=== PATIENT | female | born 1945 | race Two or more races ===

== ENCOUNTER 2021-04-03 22:03 | Inpatient (IN) | payer OTHER, MEDICAID ==
[~2021-04-03] VITALS: Ht 162.6 cm; Wt 161.0 kg
[2021-04-03 23:56] LABS: Basophils # (auto) 0.1 10 ^3/uL (0-0.2); Hemoglobin 8.4 g/dL (12.2-16.2); Lymphocytes # (auto) 1.7 10 ^3/uL (0.4-5.4)
[2021-04-03 23:59] LABS: Basophils % (auto) 0.3 % (0.0-2.0); Eosinophils # (auto) 0.3 10 ^3/uL (0-0.8); Eosinophils % (auto) 1.3 % (0.0-7.0); Hematocrit 27.1 % (36.0-46.0); Lymphocytes % (auto) 7.5 % (10.0-50.0); Mean Corpuscular Hemoglobin 26.2 pg (28.0-32.0); Mean Corpuscular Volume 84.4 fL (80.0-100.0); Monocytes # (auto) 0.6 10 ^3/uL (0-1.3); Monocytes % (auto) 2.4 % (0.0-12.0); Neutrophils # (auto) 20.4 10 ^3/uL (1.6-8.6); Neutrophils % (auto) 88.5 % (37.0-80.0); Nucleated Red Blood Cells % 0.5 %; Red Blood Cells 3.21 10^6/uL (4.0-5.20)
[2021-04-04 00:03] LABS: Red Cell Distribution Width 25.1 % (11.8-14.3)
[2021-04-04 00:20] LABS: Albumin 1.1 g/dL (3.4-5.0); Calcium 7.3 mg/dL (8.5-10.1); Potassium 5.1 mmol/L (3.5-5.1)
[2021-04-04 00:25] LABS: BUN/Creatinine Ratio 40.4; Bilirubin, Total 1.7 mg/dL (0.2-1.0); Total Protein 5.8 g/dL (6.4-8.2)
[2021-04-04 02:44] LABS: INR 1.6 (0.9-1.15)
[2021-04-04] MEDS ORDERED: VANCOMYCIN 1GM/250ML 250 ML IV ONE (03:45)
[2021-04-04] MEDS ORDERED: PIPERACILLIN-TAZOB 3.375GM 100 ML IV ONE (03:45)
[2021-04-04] MEDS ORDERED: IOHEXOL 350 MG/ML 100ML IJ ONE (04:00)
[2021-04-04] MEDS ORDERED: DEXTROSE (50%) 50ML SYRG IV PRN (07:15)
[2021-04-04] MEDS ORDERED: SODIUM CHLORIDE 0.9% 1,000 ML IV SCH (07:15)
[2021-04-04] MEDS ORDERED: VANCOMYCIN PER PHARMACY 0 MG IV SCH (07:15)
[2021-04-04] MEDS ORDERED: ONDANSETRON HCL 4 MG/2 ML VIAL IV PRN (07:15)
[2021-04-04] MEDS ORDERED: MORPHINE SULFATE INJECTION 2 MG/ML SYRG IV PRN (07:15)
[2021-04-04] MEDS ORDERED: NITROGLYCERIN 0.4 MG SL TAB SL PRN (07:15)
[2021-04-04 09:49] LABS: Urine Bacteria NONE SEEN /hpf (None Seen); Urine Blood Negative /uL (Negative); Urine Specific Gravity 1.027 (1.001-1.035); Urine WBC 37 /hpf (0 - 5); Urine WBC Clumps PRESENT /hpf (None Seen)
[2021-04-04] MEDS: PANTOPRAZOLE 40 MG/10 ML VIAL INJ IV SCH (10:06)
[2021-04-04] MEDS: InsuLIN REG 1unit/0.01ml Soln (100units/ml) SC SCH ×2 (12:00→18:36)
[2021-04-04] MEDS: ACCU-CHEK COMFORT CURVE STRIP VI SCH ×2 (12:20→18:37)
[2021-04-04] MEDS: PIPERACILLIN-TAZOB 3.375GM 100 ML IV SCH ×2 (12:20→18:36)
[2021-04-04] MEDS ORDERED: OMNIPAQUE ORAL SOLN 500ml 12mg/ml PO ONE (13:56)
[2021-04-04 14:16] LABS: Hemoglobin 8.5 g/dL (12.2-16.2)
[2021-04-04 14:18] LABS: Hematocrit 26.7 % (36.0-46.0)
[2021-04-04 14:34] LABS: Lactic Acid w/Reflex 3.6 mmol/L (0.4-2.0)
[2021-04-04] MEDS: SODIUM CHLORIDE 0.9% 1,000 ML IV SCH (16:00)
[2021-04-04 22:22] LABS: BUN/Creatinine Ratio 45.9; Calcium 7.4 mg/dL (8.5-10.1)
[2021-04-04 22:24] LABS: Bilirubin, Total 1.8 mg/dL (0.2-1.0); Total Protein 5.3 g/dL (6.4-8.2)
[2021-04-04 22:45] VITALS: BP 105/55
[2021-04-04 23:00] VITALS: BP 105/55
[2021-04-04] MEDS ORDERED: DOCU100T15 PO (23:33)
[2021-04-04] MEDS ORDERED: ALBU2TAB4 IN (23:33)
[2021-04-04] MEDS ORDERED: TRAZ50TA2 PO (23:33)
[2021-04-04] MEDS ORDERED: FURO20TA3 PO (23:33)
[2021-04-04] MEDS ORDERED: METF-370 PO (23:33)
[2021-04-04] MEDS ORDERED: GABA300C10 PO (23:33)
[2021-04-04] MEDS ORDERED: APIX5TAB PO (23:33)
[2021-04-05] MEDS: PANTOPRAZOLE 40 MG/10 ML VIAL INJ IV SCH ×3 (00:14→21:00)
[2021-04-05] MEDS: PIPERACILLIN-TAZOB 3.375GM 100 ML IV SCH ×4 (00:14→18:09)
[2021-04-05] MEDS: SODIUM CHLORIDE 0.9% 1,000 ML IV SCH ×2 (00:16→07:15)
[2021-04-05] MEDS: VANCOMYCIN 1GM/250ML 250 ML IV SCH ×2 (00:44→17:10)
[2021-04-05 05:30] VITALS: BP 104/55
[2021-04-05] MEDS: ACCU-CHEK COMFORT CURVE STRIP VI SCH ×4 (05:55→18:28)
[2021-04-05] MEDS: InsuLIN REG 1unit/0.01ml Soln (100units/ml) SC SCH ×4 (05:56→18:00)
[2021-04-05 10:05] VITALS: BP 96/58
[2021-04-05] MEDS ORDERED: ALBUAER3 IN (10:57)
[2021-04-05] MEDS ORDERED: MULT1TAB28 PO (10:57)
[2021-04-05] MEDS ORDERED: FURO20TA3 PO (10:57)
[2021-04-05] MEDS ORDERED: METF-929 PO (10:57)
[2021-04-05] MEDS ORDERED: HYDR5CRE3 PR (11:02)
[2021-04-05 13:00] VITALS: BP 95/60
[2021-04-05] MEDS ORDERED: ALBUTEROL SULF 2.5 MG/0.5ML(0.5%) NEB SOLN NEB PRN (13:15)
[2021-04-05 15:27] LABS: Hematocrit 28.1 % (36.0-46.0); Hemoglobin 8.7 g/dL (12.2-16.2); Mean Corpuscular Hgb Conc. 30.8 g/dL (32.0-36.0); Mean Corpuscular Volume 81.3 fL (80.0-100.0); Red Blood Cells 3.46 10^6/uL (4.0-5.20); White Blood Cell 20.2 10^3/uL (4.4-10.8)
[2021-04-05 15:33] LABS: Red Cell Distribution Width 24.3 % (11.8-14.3)
[2021-04-05 15:35] LABS: Basophils % (manual) 0 (0.0-2.0); Blast Cells 0; Metamyelocytes % 0; Myelocytes % 0; Promyelocytes % 0; Reactive Lymphocytes 0
[2021-04-05] MEDS: D5W/SOD CHLO 0.9% 1,000 ML IV SCH ×2 (16:06→23:15)
[2021-04-05 16:41] VITALS: BP 95/56
[2021-04-05 17:01] LABS: Band Neutrophils % (manual) 7; Eosinophils % (manual) 1 (0-7); Lymphocytes % (manual) 3 (10.0-50.0); Monocytes % (manual) 3 (0-12)
[2021-04-05] MEDS: MORPHINE SULFATE 4 MG/ML SYR/VIAL IV PRN (20:57)
[2021-04-05 22:00] VITALS: BP 96/52
[2021-04-05 23:33] LABS: Alanine Aminotransferase 50 U/L (13-56); Alkaline Phosphatase 401 U/L (45-117); Anion Gap 5 (5-15); Aspartate Aminotransferase 94 U/L (15-37); BUN/Creatinine Ratio 41.1; Bilirubin, Total 1.8 mg/dL (0.2-1.0); Blood Urea Nitrogen 46 mg/dL (7-18); Calcium 7.1 mg/dL (8.5-10.1); Carbon Dioxide 27 mmol/L (21-32); Chloride 100 mmol/L (98-107); GFR African American 61 mL/min; GFR Non-African American 51 mL/min; Glucose 91 mg/dL (74-106); Sodium 132 mmol/L (136-145)
[2021-04-05 23:34] LABS: Albumin 1.1 g/dL (3.4-5.0); Total Protein 5.5 g/dL (6.4-8.2)
[2021-04-06] MEDS: ACCU-CHEK COMFORT CURVE STRIP VI SCH ×4 (00:05→18:00)
[2021-04-06] MEDS: PIPERACILLIN-TAZOB 3.375GM 100 ML IV SCH ×2 (01:32→06:17)
[2021-04-06 05:30] VITALS: BP 93/46
[2021-04-06] MEDS: InsuLIN REG 1unit/0.01ml Soln (100units/ml) SC SCH ×4 (06:00→18:00)
[2021-04-06 06:57] LABS: Eosinophils # (auto) 0.2 10 ^3/uL (0-0.8); Nucleated Red Blood Cells % 0.3 %
[2021-04-06 07:00] LABS: Basophils # (auto) 0 10 ^3/uL (0-0.2); Basophils % (auto) 0.2 % (0.0-2.0); Eosinophils % (auto) 1.2 % (0.0-7.0); Hematocrit 28.5 % (36.0-46.0); Hemoglobin 8.7 g/dL (12.2-16.2); Lymphocytes # (auto) 1.1 10 ^3/uL (0.4-5.4); Lymphocytes % (auto) 5.3 % (10.0-50.0); Mean Corpuscular Hemoglobin 25.7 pg (28.0-32.0); Mean Corpuscular Hgb Conc. 30.5 g/dL (32.0-36.0); Mean Corpuscular Volume 84.2 fL (80.0-100.0); Monocytes # (auto) 0.6 10 ^3/uL (0-1.3); Monocytes % (auto) 2.7 % (0.0-12.0); Neutrophils # (auto) 18.9 10 ^3/uL (1.6-8.6); Neutrophils % (auto) 90.6 % (37.0-80.0); Red Blood Cells 3.38 10^6/uL (4.0-5.20); Red Cell Distribution Width 24.5 % (11.8-14.3); White Blood Cell 20.8 10^3/uL (4.4-10.8)
[2021-04-06 07:06] LABS: INR 1.52 (0.9-1.15)
[2021-04-06 07:18] LABS: Calcium 7.3 mg/dL (8.5-10.1); Lactic Acid w/Reflex 2.7 mmol/L (0.4-2.0); Magnesium 2.7 mg/dL (1.6-2.6); Potassium 4.7 mmol/L (3.5-5.1)
[2021-04-06 07:20] LABS: BUN/Creatinine Ratio 36.2
[2021-04-06 07:28] LABS: Total Protein 5.5 g/dL (6.4-8.2)
[2021-04-06] MEDS: MORPHINE SULFATE 4 MG/ML SYR/VIAL IV PRN ×2 (07:42→16:57)
[2021-04-06 08:00] VITALS: BP 111/65
[2021-04-06 08:43] VITALS: BP 111/65
[2021-04-06] MEDS: PANTOPRAZOLE 40 MG/10 ML VIAL INJ IV SCH ×2 (10:19→21:24)
[2021-04-06] MEDS: VANCOMYCIN 1GM/250ML 250 ML IV SCH (10:20)
[2021-04-06 11:52] VITALS: BP 124/68
[2021-04-06] MEDS: MEROPENEM 1GM IVPB 100 ML IV SCH ×2 (13:50→22:24)
[2021-04-06 17:12] VITALS: BP 99/62
[2021-04-06] MEDS: D5W/SOD CHLO 0.9% 1,000 ML IV SCH (19:15)
[2021-04-06 22:09] VITALS: BP 99/62
[2021-04-07] MEDS: ACCU-CHEK COMFORT CURVE STRIP VI SCH ×4 (00:12→17:47)
[2021-04-07] MEDS: MORPHINE SULFATE 4 MG/ML SYR/VIAL IV PRN ×4 (04:06→18:44)
[2021-04-07] MEDS: MEROPENEM 1GM IVPB 100 ML IV SCH ×2 (04:07→16:32)
[2021-04-07 05:04] VITALS: BP 131/81
[2021-04-07] MEDS: D5W/SOD CHLO 0.9% 1,000 ML IV SCH ×2 (05:15→15:15)
[2021-04-07] MEDS: InsuLIN REG 1unit/0.01ml Soln (100units/ml) SC SCH ×4 (06:00→17:53)
[2021-04-07] MEDS: VANCOMYCIN 1GM/250ML 250 ML IV SCH (06:00)
[2021-04-07 09:00] VITALS: BP 130/73
[2021-04-07] MEDS: PANTOPRAZOLE 40 MG/10 ML VIAL INJ IV SCH ×2 (09:49→20:45)
[2021-04-07 12:52] VITALS: BP 124/68
[2021-04-07] MEDS: LINEZOLID 600MG/300ML 300 ML IV SCH ×2 (14:08→20:48)
[2021-04-07 16:43] VITALS: BP 111/56
[2021-04-07] MEDS ORDERED: MEROPENEM 1GM IVPB 100 ML IV SCH (17:15)
[2021-04-07 22:18] VITALS: BP 91/48
[2021-04-08] MEDS: D5W/SOD CHLO 0.9% 1,000 ML IV SCH ×4 (01:15→23:02)
[2021-04-08 05:00] VITALS: BP 113/75
[2021-04-08 05:47] LABS: Hemoglobin 7.9 g/dL (12.2-16.2)
[2021-04-08 05:49] LABS: Hematocrit 24.7 % (36.0-46.0); Mean Corpuscular Hemoglobin 27.8 pg (28.0-32.0); Mean Corpuscular Hgb Conc. 31.8 g/dL (32.0-36.0); Mean Corpuscular Volume 87.5 fL (80.0-100.0); Red Blood Cells 2.82 10^6/uL (4.0-5.20); White Blood Cell 19.8 10^3/uL (4.4-10.8)
[2021-04-08 05:58] LABS: Potassium 4.5 mmol/L (3.5-5.1)
[2021-04-08 05:59] LABS: Basophils % (manual) 0 (0.0-2.0); Blast Cells 0; Metamyelocytes % 0; Myelocytes % 0; Promyelocytes % 0; Reactive Lymphocytes 0; Red Cell Distribution Width 24.2 % (11.8-14.3)
[2021-04-08] MEDS ORDERED: VANCOMYCIN 1GM/250ML 250 ML IV SCH (06:00)
[2021-04-08 06:02] LABS: BUN/Creatinine Ratio 32.4; Calcium 7.1 mg/dL (8.5-10.1)
[2021-04-08] MEDS: ACCU-CHEK COMFORT CURVE STRIP VI SCH ×4 (06:10→18:00)
[2021-04-08] MEDS: MEROPENEM 1GM IVPB 100 ML IV SCH ×2 (06:12→18:48)
[2021-04-08] MEDS: InsuLIN REG 1unit/0.01ml Soln (100units/ml) SC SCH ×4 (06:38→18:00)
[2021-04-08 07:53] LABS: Band Neutrophils % (manual) 5; Eosinophils % (manual) 1 (0-7); Lymphocytes % (manual) 3 (10.0-50.0); Monocytes % (manual) 6 (0-12)
[2021-04-08 09:00] VITALS: BP 96/56
[2021-04-08] MEDS: PANTOPRAZOLE 40 MG/10 ML VIAL INJ IV SCH ×2 (10:00→22:09)
[2021-04-08] MEDS: LINEZOLID 600MG/300ML 300 ML IV SCH ×2 (11:07→22:14)
[2021-04-08] MEDS: MORPHINE SULFATE 4 MG/ML SYR/VIAL IV PRN ×2 (11:48→17:13)
[2021-04-08 12:39] LABS: Magnesium 2.6 mg/dL (1.6-2.6); Phosphorus 5.6 mg/dL (2.5-4.90)
[2021-04-08 12:43] LABS: Pre Albumin 3.4 mg/dL (20.0-40.0)
[2021-04-08 13:00] VITALS: BP 96/54
[2021-04-08] MEDS ORDERED: PPN PER PHARMACY 0 ML IV SCH (13:00)
[2021-04-08 16:37] VITALS: BP 114/64
[2021-04-08] MEDS ORDERED: HYDROmorphone HCL 2 MG/ML VL IV PRN (19:30)
[2021-04-08] MEDS ORDERED: AMINO ACID INFUSION IN D10W 1,000 ML IV NR (20:00)
[2021-04-08 22:00] VITALS: BP 111/65
[2021-04-09] VITALS (10 sets, daily range): BP systolic 87–120; BP diastolic 52–72
[2021-04-09] MEDS ORDERED: DEXTROSE (50%) 50ML SYRG IV SCH
[2021-04-09] MEDS: ACCU-CHEK COMFORT CURVE STRIP VI SCH ×4 (00:25→18:00)
[2021-04-09] MEDS: MEROPENEM 1GM IVPB 100 ML IV SCH ×2 (05:39→23:22)
[2021-04-09] MEDS: InsuLIN REG 1unit/0.01ml Soln (100units/ml) SC SCH ×4 (05:42→18:00)
[2021-04-09 06:14] LABS: Hematocrit 19.9 % (36.0-46.0); Mean Corpuscular Hemoglobin 32.2 pg (28.0-32.0); Mean Corpuscular Hgb Conc. 28.7 g/dL (32.0-36.0); Mean Corpuscular Volume 111.9 fL (80.0-100.0); Red Blood Cells 1.78 10^6/uL (4.0-5.20); White Blood Cell 14.7 10^3/uL (4.4-10.8)
[2021-04-09 06:32] LABS: Hemoglobin 5.7 g/dL (12.2-16.2); Red Cell Distribution Width 25.8 % (11.8-14.3)
[2021-04-09 06:34] LABS: Basophils % (manual) 0 (0.0-2.0); Blast Cells 0; Eosinophils % (manual) 0 (0-7); Metamyelocytes % 0; Monocytes % (manual) 0 (0-12); Myelocytes % 0; Promyelocytes % 0; Reactive Lymphocytes 0
[2021-04-09 09:10] LABS: Band Neutrophils % (manual) 1; Lymphocytes % (manual) 3 (10.0-50.0)
[2021-04-09] MEDS: PANTOPRAZOLE 40 MG/10 ML VIAL INJ IV SCH ×2 (09:39→22:40)
[2021-04-09] MEDS: LINEZOLID 600MG/300ML 300 ML IV SCH ×2 (09:40→23:01)
[2021-04-09 09:52] LABS: INR 1.38 (0.9-1.15); Partial Thromboplastin Time 35.3 sec (23.6-33.0)
[2021-04-09 09:54] LABS: Calcium 7.1 mg/dL (8.5-10.1); Magnesium 3.4 mg/dL (1.6-2.6); Potassium 4.4 mmol/L (3.5-5.1)
[2021-04-09 10:00] LABS: Bilirubin, Total 1.3 mg/dL (0.2-1.0); Phosphorus 5.3 mg/dL (2.5-4.90); Total Protein 4.8 g/dL (6.4-8.2)
[2021-04-09 10:04] LABS: Hemoglobin 7.3 g/dL (12.2-16.2); Lymphocytes # (auto) 1.1 10 ^3/uL (0.4-5.4); Nucleated Red Blood Cells % 0.2 %
[2021-04-09 10:07] LABS: Basophils # (auto) 0 10 ^3/uL (0-0.2); Basophils % (auto) 0.2 % (0.0-2.0); Eosinophils # (auto) 0.2 10 ^3/uL (0-0.8); Eosinophils % (auto) 0.9 % (0.0-7.0); Hematocrit 22.5 % (36.0-46.0); Mean Corpuscular Hemoglobin 29.7 pg (28.0-32.0); Mean Corpuscular Hgb Conc. 32.5 g/dL (32.0-36.0); Mean Corpuscular Volume 91.5 fL (80.0-100.0); Monocytes # (auto) 0.3 10 ^3/uL (0-1.3); Monocytes % (auto) 1.6 % (0.0-12.0); Neutrophils # (auto) 16.1 10 ^3/uL (1.6-8.6); Neutrophils % (auto) 91.3 % (37.0-80.0); Red Blood Cells 2.46 10^6/uL (4.0-5.20); Red Cell Distribution Width 24.7 % (11.8-14.3); White Blood Cell 17.6 10^3/uL (4.4-10.8)
[2021-04-09 11:26] LABS: BUN/Creatinine Ratio 36.1
[2021-04-09] MEDS: ALBUMIN 25% 100 ML IV SCH ×2 (14:30→22:40)
[2021-04-09] MEDS ORDERED: FUROSEMIDE 20 MG/2 ML VIAL IV ONE (14:45)
[2021-04-09] MEDS: D5W/SOD CHLO 0.9% 1,000 ML IV SCH (17:15)
[2021-04-09] MEDS ORDERED: TRACE MINERALS IV NR ×6 (20:00)
[2021-04-09] MEDS ORDERED: SODIUM CHLORIDE IV NR ×6 (20:00)
[2021-04-09] MEDS ORDERED: [UNRECOGNIZED DRUG - OTHER] IV NR ×6 (20:00)
[2021-04-09] MEDS ORDERED: SODIUM ACETATE IV NR ×6 (20:00)
[2021-04-10] MEDS: ACCU-CHEK COMFORT CURVE STRIP VI SCH ×4 (00:20→17:38)
[2021-04-10] MEDS: D5W/SOD CHLO 0.9% 1,000 ML IV SCH ×2 (03:10→15:51)
[2021-04-10 04:00] VITALS: BP 98/58
[2021-04-10] MEDS: InsuLIN REG 1unit/0.01ml Soln (100units/ml) SC SCH ×4 (05:30→17:46)
[2021-04-10] MEDS: ALBUMIN 25% 100 ML IV SCH (06:14)
[2021-04-10 08:00] VITALS: BP 124/75
[2021-04-10 09:00] VITALS: BP 124/75
[2021-04-10 09:24] LABS: Monocytes # (auto) 0.4 10 ^3/uL (0-1.3); White Blood Cell 16.7 10^3/uL (4.4-10.8)
[2021-04-10 09:27] LABS: Basophils # (auto) 0 10 ^3/uL (0-0.2); Basophils % (auto) 0.3 % (0.0-2.0); Eosinophils # (auto) 0.5 10 ^3/uL (0-0.8); Eosinophils % (auto) 2.7 % (0.0-7.0); Hematocrit 24.5 % (36.0-46.0); Lymphocytes # (auto) 0.9 10 ^3/uL (0.4-5.4); Lymphocytes % (auto) 5.5 % (10.0-50.0); Mean Corpuscular Hgb Conc. 32.7 g/dL (32.0-36.0); Mean Corpuscular Volume 91.8 fL (80.0-100.0); Monocytes % (auto) 2.4 % (0.0-12.0); Neutrophils # (auto) 14.9 10 ^3/uL (1.6-8.6); Neutrophils % (auto) 89.1 % (37.0-80.0); Nucleated Red Blood Cells % 0.3 %; Red Blood Cells 2.67 10^6/uL (4.0-5.20); Red Cell Distribution Width 22.7 % (11.8-14.3)
[2021-04-10 09:35] LABS: INR 1.37 (0.9-1.15)
[2021-04-10 09:42] LABS: Lactic Acid w/Reflex 2.8 mmol/L (0.4-2.0)
[2021-04-10] MEDS ORDERED: GELATIN 1 SPONGE SIZE 50 TOP ONE (10:37)
[2021-04-10] MEDS ORDERED: LIDOCAINE 2%HCL (LOCAL ANESTH.) INJ 20ML MDV ONE (10:37)
[2021-04-10 10:41] LABS: Potassium 4.3 mmol/L (3.5-5.1)
[2021-04-10 10:46] LABS: Albumin 2.1 g/dL (3.4-5.0); BUN/Creatinine Ratio 36.3; Calcium 7.7 mg/dL (8.5-10.1); Magnesium 2.6 mg/dL (1.6-2.6)
[2021-04-10 10:48] LABS: Bilirubin, Total 1.5 mg/dL (0.2-1.0); Phosphorus 4.7 mg/dL (2.5-4.90); Total Protein 5.3 g/dL (6.4-8.2)
[2021-04-10] MEDS: MEROPENEM 1GM IVPB 100 ML IV SCH ×2 (10:56→21:31)
[2021-04-10] MEDS: PANTOPRAZOLE 40 MG/10 ML VIAL INJ IV SCH ×2 (10:57→22:14)
[2021-04-10] MEDS: LINEZOLID 600MG/300ML 300 ML IV SCH ×2 (10:57→22:14)
[2021-04-10] MEDS ORDERED: MIDAZOLAM HCL 2MG/2ML 2ml VIAL (1mg/ml) ONE (11:59)
[2021-04-10] MEDS ORDERED: fentaNYL CITRATE 100 MCG/2 ML VL ONE (12:00)
[2021-04-10 13:00] VITALS: BP 115/65
[2021-04-10] MEDS ORDERED: LIDOCAINE 1% (LOCAL ANESTH.) PF 5ml SDV ID ONE (17:30)
[2021-04-10] MEDS: MORPHINE SULFATE 4 MG/ML SYR/VIAL IV PRN (17:39)
[2021-04-10] MEDS ORDERED: PPN PER PHARMACY IV NR ×8 (20:00)
[2021-04-10 22:00] VITALS: BP 125/71
[2021-04-11 05:00] VITALS: BP 95/52
[2021-04-11] MEDS: InsuLIN REG 1unit/0.01ml Soln (100units/ml) SC SCH ×4 (06:00→18:01)
[2021-04-11] MEDS: ACCU-CHEK COMFORT CURVE STRIP VI SCH ×4 (06:28→18:01)
[2021-04-11 08:26] LABS: Basophils # (auto) 0.1 10 ^3/uL (0-0.2); Basophils % (auto) 0.6 % (0.0-2.0); Eosinophils # (auto) 0.1 10 ^3/uL (0-0.8); Eosinophils % (auto) 0.8 % (0.0-7.0); Hemoglobin 8.3 g/dL (12.2-16.2); Monocytes # (auto) 0.3 10 ^3/uL (0-1.3); Neutrophils # (auto) 14.6 10 ^3/uL (1.6-8.6); White Blood Cell 16.1 10^3/uL (4.4-10.8)
[2021-04-11 08:29] LABS: Hematocrit 26.3 % (36.0-46.0); Mean Corpuscular Hemoglobin 28.4 pg (28.0-32.0); Mean Corpuscular Hgb Conc. 31.7 g/dL (32.0-36.0); Mean Corpuscular Volume 89.6 fL (80.0-100.0); Monocytes % (auto) 1.9 % (0.0-12.0); Neutrophils % (auto) 90.7 % (37.0-80.0); Nucleated Red Blood Cells % 0.2 %; Red Blood Cells 2.93 10^6/uL (4.0-5.20); Red Cell Distribution Width 22.6 % (11.8-14.3)
[2021-04-11 08:54] LABS: Albumin 1.7 g/dL (3.4-5.0); BUN/Creatinine Ratio 44.4; Bilirubin, Total 1.3 mg/dL (0.2-1.0); Magnesium 2.7 mg/dL (1.6-2.6); Phosphorus 4.5 mg/dL (2.5-4.90); Total Protein 5.3 g/dL (6.4-8.2)
[2021-04-11 09:00] VITALS: BP 108/63
[2021-04-11] MEDS: PANTOPRAZOLE 40 MG/10 ML VIAL INJ IV SCH (09:52)
[2021-04-11] MEDS: LINEZOLID 600MG/300ML 300 ML IV SCH (09:52)
[2021-04-11] MEDS: MEROPENEM 1GM IVPB 100 ML IV SCH ×2 (09:52→22:40)
[2021-04-11] MEDS: D5W/SOD CHLO 0.9% 1,000 ML IV SCH ×2 (09:53→09:59)
[2021-04-11] MEDS ORDERED: TPN PER PHARMACY 0 ML IV SCH (10:00)
[2021-04-11 13:00] VITALS: BP_SYST 89; BP_SYST 96; BP_DIAS 54; BP_DIAS 58
[2021-04-11] MEDS ORDERED: KETOROLAC TROMETH 30 MG/ML 1ML VIAL IV PRN (14:45)
[2021-04-11] MEDS ORDERED: MORPHINE SULFATE INJECTION 2 MG/ML SYRG IV PRN (14:45)
[2021-04-11] MEDS ORDERED: FUROSEMIDE 20 MG/2 ML VIAL IV ONE (16:00)
[2021-04-11] MEDS ORDERED: ALBUMIN 25% 100 ML IV SCH (16:00)
[2021-04-11] MEDS: ALBUMIN 25% 100 ML IV SCH (16:36)
[2021-04-11 16:54] VITALS: BP 100/57
[2021-04-11 20:00] VITALS: BP 91/52
[2021-04-11] MEDS ORDERED: TPN PER PHARMACY IV NR ×6 (20:00)
[2021-04-11 22:00] VITALS: BP 91/52
[2021-04-11] MEDS ORDERED: KETOROLAC TROMETH 30 MG/ML 1ML VIAL ONE (22:08)
[2021-04-12] MEDS: LINEZOLID 600MG/300ML 300 ML IV SCH ×2 (00:46→09:26)
[2021-04-12] MEDS: PANTOPRAZOLE 40 MG/10 ML VIAL INJ IV SCH ×3 (00:46→23:01)
[2021-04-12] MEDS: ACCU-CHEK COMFORT CURVE STRIP VI SCH ×4 (00:47→17:55)
[2021-04-12] MEDS: ALBUMIN 25% 100 ML IV SCH ×2 (02:38→09:26)
[2021-04-12] MEDS: D5W/SOD CHLO 0.9% 1,000 ML IV SCH ×3 (04:03→15:17)
[2021-04-12 05:21] VITALS: BP 91/53
[2021-04-12 05:33] LABS: Basophils # (auto) 0.1 10 ^3/uL (0-0.2); Basophils % (auto) 0.5 % (0.0-2.0); Eosinophils # (auto) 0.2 10 ^3/uL (0-0.8); Eosinophils % (auto) 1.4 % (0.0-7.0); Hematocrit 26.4 % (36.0-46.0); Hemoglobin 8.2 g/dL (12.2-16.2); Lymphocytes # (auto) 1.3 10 ^3/uL (0.4-5.4); Lymphocytes % (auto) 8.7 % (10.0-50.0); Mean Corpuscular Hemoglobin 25.8 pg (28.0-32.0); Mean Corpuscular Hgb Conc. 30.9 g/dL (32.0-36.0); Mean Corpuscular Volume 83.5 fL (80.0-100.0); Monocytes # (auto) 0.3 10 ^3/uL (0-1.3); Monocytes % (auto) 2.2 % (0.0-12.0); Neutrophils # (auto) 13.1 10 ^3/uL (1.6-8.6); Neutrophils % (auto) 87.2 % (37.0-80.0); Nucleated Red Blood Cells % 0.2 %; Red Blood Cells 3.17 10^6/uL (4.0-5.20)
[2021-04-12 05:40] LABS: INR 1.44 (0.9-1.15); Red Cell Distribution Width 22.6 % (11.8-14.3)
[2021-04-12 05:44] LABS: Albumin 2.1 g/dL (3.4-5.0); Calcium 7.2 mg/dL (8.5-10.1); Magnesium 3.2 mg/dL (1.6-2.6)
[2021-04-12 05:48] LABS: BUN/Creatinine Ratio 43.5; Bilirubin, Total 1.2 mg/dL (0.2-1.0); Phosphorus 3.8 mg/dL (2.5-4.90); Total Protein 5.1 g/dL (6.4-8.2)
[2021-04-12] MEDS: InsuLIN REG 1unit/0.01ml Soln (100units/ml) SC SCH ×4 (05:59→17:57)
[2021-04-12 09:00] VITALS: BP 126/69
[2021-04-12] MEDS: MEROPENEM 1GM IVPB 100 ML IV SCH (09:25)
[2021-04-12] MEDS: KETOROLAC TROMETH 30 MG/ML 1ML VIAL IV PRN ×2 (11:52→23:19)
[2021-04-12 13:00] VITALS: BP 138/60
[2021-04-12 16:59] VITALS: BP 115/64
[2021-04-12] MEDS ORDERED: TPN PER PHARMACY IV NR ×8 (20:00)
[2021-04-12 22:00] VITALS: BP 116/79
[2021-04-12] MEDS: PIPERACILLIN-TAZOB 3.375GM 100 ML IV SCH (23:02)
[2021-04-13] MEDS: InsuLIN REG 1unit/0.01ml Soln (100units/ml) SC SCH ×5 (01:32→23:57)
[2021-04-13] MEDS: ACCU-CHEK COMFORT CURVE STRIP VI SCH ×5 (01:33→23:54)
[2021-04-13] MEDS: D5W/SOD CHLO 0.9% 1,000 ML IV SCH ×3 (01:42→20:58)
[2021-04-13 05:00] VITALS: BP 112/61
[2021-04-13 06:37] LABS: Albumin 1.8 g/dL (3.4-5.0); Calcium 7.5 mg/dL (8.5-10.1); Magnesium 3.3 mg/dL (1.6-2.6); Potassium 3.3 mmol/L (3.5-5.1)
[2021-04-13 06:40] LABS: BUN/Creatinine Ratio 52.9; Bilirubin, Total 0.9 mg/dL (0.2-1.0); Phosphorus 3.2 mg/dL (2.5-4.90); Total Protein 4.6 g/dL (6.4-8.2)
[2021-04-13] MEDS: PIPERACILLIN-TAZOB 3.375GM 100 ML IV SCH ×3 (06:56→22:44)
[2021-04-13 08:48] VITALS: BP 110/66
[2021-04-13] MEDS: KETOROLAC TROMETH 30 MG/ML 1ML VIAL IV PRN (09:32)
[2021-04-13] MEDS: PANTOPRAZOLE 40 MG/10 ML VIAL INJ IV SCH ×2 (09:32→22:44)
[2021-04-13] MEDS: POTASSIUM CHL 10MEQ/50ML 50 ML IV SCH ×2 (10:42→11:44)
[2021-04-13 13:00] VITALS: BP 100/51
[2021-04-13 16:40] VITALS: BP 113/64
[2021-04-13] MEDS ORDERED: TPN PER PHARMACY IV NR ×9 (20:00)
[2021-04-13 22:00] VITALS: BP 111/64
[2021-04-14 05:00] VITALS: BP 102/54
[2021-04-14 05:10] LABS: Hemoglobin 7.7 g/dL (12.2-16.2); Mean Corpuscular Volume 85.7 fL (80.0-100.0)
[2021-04-14 05:16] LABS: Hematocrit 25.5 % (36.0-46.0); Mean Corpuscular Hemoglobin 25.9 pg (28.0-32.0); Mean Corpuscular Hgb Conc. 30.2 g/dL (32.0-36.0); Red Blood Cells 2.97 10^6/uL (4.0-5.20); Red Cell Distribution Width 23.2 % (11.8-14.3)
[2021-04-14 05:24] LABS: INR 1.27 (0.9-1.15)
[2021-04-14 05:29] LABS: Basophils % (manual) 0 (0.0-2.0); Blast Cells 0; Metamyelocytes % 0; Myelocytes % 0; Promyelocytes % 0; Reactive Lymphocytes 0
[2021-04-14 05:33] LABS: Albumin 1.6 g/dL (3.4-5.0); Calcium 7.5 mg/dL (8.5-10.1); Potassium 3.5 mmol/L (3.5-5.1)
[2021-04-14 05:39] LABS: BUN/Creatinine Ratio 64.9; Bilirubin, Total 0.9 mg/dL (0.2-1.0); Total Protein 4.5 g/dL (6.4-8.2)
[2021-04-14] MEDS: ACCU-CHEK COMFORT CURVE STRIP VI SCH ×3 (06:07→18:24)
[2021-04-14] MEDS: PIPERACILLIN-TAZOB 3.375GM 100 ML IV SCH (06:07)
[2021-04-14] MEDS: InsuLIN REG 1unit/0.01ml Soln (100units/ml) SC SCH ×3 (06:11→18:23)
[2021-04-14 06:26] LABS: Band Neutrophils % (manual) 11; Eosinophils % (manual) 2 (0-7); Lymphocytes % (manual) 8 (10.0-50.0); Monocytes % (manual) 2 (0-12)
[2021-04-14 08:00] VITALS: BP 111/57
[2021-04-14 09:00] VITALS: BP 107/55
[2021-04-14] MEDS: D5W/SOD CHLO 0.9% 1,000 ML IV SCH ×2 (10:33→14:24)
[2021-04-14] MEDS ORDERED: VANCOMYCIN PER PHARMACY 0 MG IV SCH (11:45)
[2021-04-14] MEDS ORDERED: FUROSEMIDE 20 MG/2 ML VIAL IV ONE (11:45)
[2021-04-14] MEDS: PANTOPRAZOLE 40 MG/10 ML VIAL INJ IV SCH ×2 (12:14→22:14)
[2021-04-14 13:00] VITALS: BP 113/54
[2021-04-14] MEDS ORDERED: VANCOMYCIN 1,500 MG in D5W 5% 250 ML IV ONE (13:00)
[2021-04-14] MEDS: ALBUMIN 25% 100 ML IV SCH ×2 (16:26→20:04)
[2021-04-14 17:09] VITALS: BP 96/53
[2021-04-14] MEDS ORDERED: TPN PER PHARMACY IV NR ×7 (20:00)
[2021-04-14 22:00] VITALS: BP 93/54
[2021-04-14] MEDS: MEROPENEM 1GM IVPB 100 ML IV SCH (22:14)
[2021-04-15] VITALS (20 sets, daily range): BP systolic 74–128; BP diastolic 44–73
[2021-04-15] MEDS: D5W/SOD CHLO 0.9% 1,000 ML IV SCH ×3 (00:15→21:55)
[2021-04-15] MEDS: ACCU-CHEK COMFORT CURVE STRIP VI SCH ×4 (00:24→18:03)
[2021-04-15] MEDS: InsuLIN REG 1unit/0.01ml Soln (100units/ml) SC SCH ×4 (00:27→18:00)
[2021-04-15] MEDS ORDERED: VANCOMYCIN 1GM/250ML 250 ML IV SCH (02:00)
[2021-04-15] MEDS: ALBUMIN 25% 100 ML IV SCH (03:52)
[2021-04-15 06:08] LABS: Hematocrit 23.3 % (36.0-46.0); Mean Corpuscular Hemoglobin 25.8 pg (28.0-32.0); Mean Corpuscular Hgb Conc. 30.1 g/dL (32.0-36.0); Mean Corpuscular Volume 85.7 fL (80.0-100.0); Monocytes # (auto) 0.4 10 ^3/uL (0-1.3); Nucleated Red Blood Cells % 0.3 %
[2021-04-15 06:09] LABS: Basophils # (auto) 0.1 10 ^3/uL (0-0.2); Basophils % (auto) 0.9 % (0.0-2.0); Eosinophils # (auto) 0.1 10 ^3/uL (0-0.8); Eosinophils % (auto) 0.6 % (0.0-7.0); Lymphocytes # (auto) 1.1 10 ^3/uL (0.4-5.4); Lymphocytes % (auto) 9.3 % (10.0-50.0); Monocytes % (auto) 3.2 % (0.0-12.0); Neutrophils # (auto) 10.5 10 ^3/uL (1.6-8.6); Red Blood Cells 2.73 10^6/uL (4.0-5.20); Red Cell Distribution Width 22.7 % (11.8-14.3); White Blood Cell 12.2 10^3/uL (4.4-10.8)
[2021-04-15 06:20] LABS: Potassium 3.7 mmol/L (3.5-5.1)
[2021-04-15 06:28] LABS: Albumin 2.6 g/dL (3.4-5.0); BUN/Creatinine Ratio 61.3; Bilirubin, Total 0.9 mg/dL (0.2-1.0); Calcium 7.9 mg/dL (8.5-10.1); Magnesium 3.1 mg/dL (1.6-2.6); Phosphorus 3.3 mg/dL (2.5-4.90); Pre Albumin 8.4 mg/dL (20.0-40.0); Total Protein 5.4 g/dL (6.4-8.2)
[2021-04-15] MEDS ORDERED: ALBUMIN 25% 100 ML IV ONE (08:45)
[2021-04-15] MEDS: MEROPENEM 1GM IVPB 100 ML IV SCH ×2 (10:07→21:21)
[2021-04-15] MEDS: PANTOPRAZOLE 40 MG/10 ML VIAL INJ IV SCH ×2 (10:07→21:45)
[2021-04-15] MEDS ORDERED: FUROSEMIDE 20 MG/2 ML VIAL IV ONE (11:30)
[2021-04-15] MEDS ORDERED: NOREPINEPHRINE 8 MG/250ML KIT 250 ML IV ONE (11:38)
[2021-04-15] MEDS: NOREPINEPHRINE 8 MG/250ML KIT 250 ML IV SCH ×2 (11:45→21:46)
[2021-04-15] MEDS ORDERED: NOREPINEPHRINE 8 MG/250ML KIT 250 ML IV SCH (11:45)
[2021-04-15] MEDS ORDERED: FUROSEMIDE 40 MG/4 ML VIAL IV ONE (13:00)
[2021-04-15 14:05] LABS: Hemoglobin 7.5 g/dL (12.2-16.2)
[2021-04-15 14:07] LABS: Hematocrit 25.3 % (36.0-46.0); Mean Corpuscular Hemoglobin 27.3 pg (28.0-32.0); Mean Corpuscular Hgb Conc. 29.5 g/dL (32.0-36.0); Mean Corpuscular Volume 92.5 fL (80.0-100.0); Red Blood Cells 2.74 10^6/uL (4.0-5.20); White Blood Cell 17.1 10^3/uL (4.4-10.8)
[2021-04-15 14:17] LABS: Calcium 8.6 mg/dL (8.5-10.1); Magnesium 3.8 mg/dL (1.6-2.6)
[2021-04-15 14:19] LABS: Lactic Acid w/Reflex 8.4 mmol/L (0.4-2.0)
[2021-04-15 14:20] LABS: Red Cell Distribution Width 23.1 % (11.8-14.3)
[2021-04-15 14:21] LABS: Basophils % (manual) 0 (0.0-2.0); Blast Cells 0; Metamyelocytes % 0; Promyelocytes % 0; Reactive Lymphocytes 0
[2021-04-15 14:25] LABS: Bilirubin, Total 1.1 mg/dL (0.2-1.0); Total Protein 4.7 g/dL (6.4-8.2)
[2021-04-15 14:30] LABS: BUN/Creatinine Ratio 47.2
[2021-04-15 15:46] LABS: Band Neutrophils % (manual) 8; Lymphocytes % (manual) 33 (10.0-50.0)
[2021-04-15 15:47] LABS: Eosinophils % (manual) 1 (0-7); Monocytes % (manual) 2 (0-12); Myelocytes % 4
[2021-04-15] MEDS ORDERED: TPN PER PHARMACY IV NR ×7 (20:00)
[2021-04-16] VITALS (28 sets, daily range): BP systolic 81–132; BP diastolic 26–71
[2021-04-16] MEDS: D5W/SOD CHLO 0.9% 1,000 ML IV SCH ×2 (01:05→11:00)
[2021-04-16] MEDS ORDERED: VANCOMYCIN 1GM/250ML 250 ML IV SCH (02:00)
[2021-04-16 03:51] LABS: Hemoglobin 7.8 g/dL (12.2-16.2)
[2021-04-16 03:55] LABS: Hematocrit 25.8 % (36.0-46.0); Mean Corpuscular Hemoglobin 25.7 pg (28.0-32.0); Mean Corpuscular Hgb Conc. 30.2 g/dL (32.0-36.0); Mean Corpuscular Volume 85.1 fL (80.0-100.0); Red Blood Cells 3.03 10^6/uL (4.0-5.20); White Blood Cell 14.3 10^3/uL (4.4-10.8)
[2021-04-16] MEDS ORDERED: VANCOMYCIN 1GM/250ML 250 ML IV ONE (04:00)
[2021-04-16 04:07] LABS: Red Cell Distribution Width 22.4 % (11.8-14.3)
[2021-04-16 04:08] LABS: Basophils % (manual) 0 (0.0-2.0); Blast Cells 0; Eosinophils % (manual) 0 (0-7); Metamyelocytes % 0; Myelocytes % 0; Promyelocytes % 0; Reactive Lymphocytes 0
[2021-04-16 04:12] LABS: INR 1.63 (0.9-1.15)
[2021-04-16 04:13] LABS: Albumin 1.8 g/dL (3.4-5.0); Calcium 7.6 mg/dL (8.5-10.1); Potassium 3.9 mmol/L (3.5-5.1)
[2021-04-16 04:22] LABS: BUN/Creatinine Ratio 45.4; Bilirubin, Total 1.3 mg/dL (0.2-1.0); Phosphorus 2.8 mg/dL (2.5-4.90)
[2021-04-16 04:38] LABS: Band Neutrophils % (manual) 31; Lymphocytes % (manual) 10 (10.0-50.0); Monocytes % (manual) 6 (0-12)
[2021-04-16] MEDS: InsuLIN REG 1unit/0.01ml Soln (100units/ml) SC SCH ×3 (06:01→18:00)
[2021-04-16] MEDS: ACCU-CHEK COMFORT CURVE STRIP VI SCH ×3 (06:03→18:00)
[2021-04-16] MEDS: NOREPINEPHRINE 8 MG/250ML KIT 250 ML IV SCH ×2 (08:23→20:52)
[2021-04-16 09:01] LABS: Lactic Acid w/Reflex 6.3 mmol/L (0.4-2.0)
[2021-04-16] MEDS: MIDAZOLAM DRIP 50 mg/50mL 50 ML IV SCH (09:51)
[2021-04-16] MEDS: VASOPRESSIN 50 UNITS in D5W 5% 247.5 ML IV SCH ×2 (09:56→22:39)
[2021-04-16] MEDS: ALBUMIN 25% 100 ML IV SCH ×2 (10:43→17:46)
[2021-04-16] MEDS: MEROPENEM 1GM IVPB 100 ML IV SCH ×2 (10:43→22:00)
[2021-04-16] MEDS: PANTOPRAZOLE 40 MG/10 ML VIAL INJ IV SCH ×2 (10:44→22:00)
[2021-04-16] MEDS ORDERED: MICAFUNGIN SODIUM 100 MG in SODIUM CHL 0.9% 100 ML IV ONE (11:15)
[2021-04-16] MEDS: PHENYLEPHRINE INJ 80 MG in SODIUM CHL 0.9% 242 ML IV SCH ×2 (11:30→20:51)
[2021-04-16] MEDS ORDERED: DEXTROSE (50%) 50ML SYRG IV PRN (12:30)
[2021-04-16] MEDS: fentaNYL Drip 2500mCg/250mlNS 250 ML IV SCH (13:05)
[2021-04-16] MEDS ORDERED: phytonadione 10 MG in SODIUM CHL 0.9% 50 ML IV ONE (13:15)
[2021-04-16] MEDS ORDERED: FUROSEMIDE 20 MG/2 ML VIAL IV ONE (15:45)
[2021-04-17] VITALS (39 sets, daily range): BP systolic 90–148; BP diastolic 33–84
[2021-04-17] MEDS: ALBUMIN 25% 100 ML IV SCH (00:39)
[2021-04-17] MEDS: D5W/SOD CHLO 0.9% 1,000 ML IV SCH ×2 (01:18→15:36)
[2021-04-17] MEDS: fentaNYL Drip 2500mCg/250mlNS 250 ML IV SCH ×2 (03:06→18:35)
[2021-04-17] MEDS: MIDAZOLAM DRIP 50 mg/50mL 50 ML IV SCH (03:07)
[2021-04-17] MEDS: NOREPINEPHRINE 8 MG/250ML KIT 250 ML IV SCH (03:09)
[2021-04-17 03:25] LABS: Basophils # (auto) 0.1 10 ^3/uL (0-0.2); Basophils % (auto) 0.5 % (0.0-2.0); Eosinophils # (auto) 0.1 10 ^3/uL (0-0.8); Eosinophils % (auto) 0.9 % (0.0-7.0); White Blood Cell 14.3 10^3/uL (4.4-10.8)
[2021-04-17 03:27] LABS: Hematocrit 18.9 % (36.0-46.0); Lymphocytes % (auto) 14.2 % (10.0-50.0); Mean Corpuscular Hemoglobin 28.5 pg (28.0-32.0); Mean Corpuscular Hgb Conc. 32.4 g/dL (32.0-36.0); Monocytes # (auto) 1.1 10 ^3/uL (0-1.3); Monocytes % (auto) 7.5 % (0.0-12.0); Neutrophils % (auto) 76.9 % (37.0-80.0); Nucleated Red Blood Cells % 0.1 %; Red Blood Cells 2.15 10^6/uL (4.0-5.20)
[2021-04-17 03:36] LABS: INR 1.67 (0.9-1.15)
[2021-04-17 03:42] LABS: Albumin 2.8 g/dL (3.4-5.0); BUN/Creatinine Ratio 38.8; Magnesium 2.2 mg/dL (1.6-2.6)
[2021-04-17 03:45] LABS: Bilirubin, Total 2.5 mg/dL (0.2-1.0); Total Protein 4.9 g/dL (6.4-8.2)
[2021-04-17 03:57] LABS: Hemoglobin 6.1 g/dL (12.2-16.2); Red Cell Distribution Width 23.4 % (11.8-14.3)
[2021-04-17] MEDS: ACCU-CHEK COMFORT CURVE STRIP VI SCH ×4 (05:35→18:00)
[2021-04-17] MEDS: InsuLIN REG 1unit/0.01ml Soln (100units/ml) SC SCH ×4 (05:35→18:00)
[2021-04-17] MEDS: PHENYLEPHRINE INJ 80 MG in SODIUM CHL 0.9% 242 ML IV SCH (05:36)
[2021-04-17] MEDS: MICAFUNGIN SODIUM 100 MG in SODIUM CHL 0.9% 100 ML IV SCH (08:24)
[2021-04-17] MEDS: PANTOPRAZOLE 40 MG/10 ML VIAL INJ IV SCH ×2 (09:34→22:07)
[2021-04-17] MEDS: MEROPENEM 1GM IVPB 100 ML IV SCH ×2 (09:35→22:07)
[2021-04-17] MEDS ORDERED: FUROSEMIDE 40 MG/4 ML VIAL IV ONE (14:00)
[2021-04-17] MEDS: DOPamine 1600MCG/ML D5W 250 ML IV SCH (16:32)
[2021-04-17] MEDS: VASOPRESSIN 50 UNITS in D5W 5% 247.5 ML IV SCH (19:00)
[2021-04-18] VITALS (23 sets, daily range): BP systolic 91–125; BP diastolic 48–69
[2021-04-18 03:27] LABS: Basophils # (auto) 0.2 10 ^3/uL (0-0.2); Lymphocytes # (auto) 1.8 10 ^3/uL (0.4-5.4); Monocytes # (auto) 0.5 10 ^3/uL (0-1.3); Neutrophils # (auto) 14.5 10 ^3/uL (1.6-8.6); Nucleated Red Blood Cells % 0.3 %
[2021-04-18 03:31] LABS: Eosinophils # (auto) 0.7 10 ^3/uL (0-0.8); Eosinophils % (auto) 3.8 % (0.0-7.0); Hematocrit 27.1 % (36.0-46.0); Hemoglobin 8.6 g/dL (12.2-16.2); Lymphocytes % (auto) 10.4 % (10.0-50.0); Mean Corpuscular Hemoglobin 28.3 pg (28.0-32.0); Mean Corpuscular Hgb Conc. 31.7 g/dL (32.0-36.0); Mean Corpuscular Volume 89.3 fL (80.0-100.0); Monocytes % (auto) 2.9 % (0.0-12.0); Neutrophils % (auto) 81.9 % (37.0-80.0); Red Blood Cells 3.04 10^6/uL (4.0-5.20); White Blood Cell 17.6 10^3/uL (4.4-10.8)
[2021-04-18 03:44] LABS: Albumin 1.6 g/dL (3.4-5.0); Calcium 7.6 mg/dL (8.5-10.1); Magnesium 2.5 mg/dL (1.6-2.6); Potassium 4.9 mmol/L (3.5-5.1)
[2021-04-18 03:46] LABS: Lactic Acid w/Reflex 5.3 mmol/L (0.4-2.0)
[2021-04-18 03:47] LABS: Red Cell Distribution Width 24.1 % (11.8-14.3)
[2021-04-18 03:51] LABS: BUN/Creatinine Ratio 38.9; Bilirubin, Total 2.7 mg/dL (0.2-1.0); Total Protein 3.8 g/dL (6.4-8.2)
[2021-04-18] MEDS: InsuLIN REG 1unit/0.01ml Soln (100units/ml) SC SCH ×4 (06:00→18:00)
[2021-04-18] MEDS: ACCU-CHEK COMFORT CURVE STRIP VI SCH ×4 (06:00→18:05)
[2021-04-18] MEDS: D5W/SOD CHLO 0.9% 1,000 ML IV SCH (06:20)
[2021-04-18] MEDS: MIDAZOLAM DRIP 50 mg/50mL 50 ML IV SCH (09:00)
[2021-04-18] MEDS: MICAFUNGIN SODIUM 100 MG in SODIUM CHL 0.9% 100 ML IV SCH (09:47)
[2021-04-18] MEDS: PANTOPRAZOLE 40 MG/10 ML VIAL INJ IV SCH ×2 (09:47→22:00)
[2021-04-18] MEDS: MEROPENEM 1GM IVPB 100 ML IV SCH (10:30)
[2021-04-18] MEDS ORDERED: DAPTOmycin 800 MG in SODIUM CHL 0.9% 50 ML IV STA ×2 (11:14→12:15)
[2021-04-18] MEDS: PHENYLEPHRINE INJ 80 MG in SODIUM CHL 0.9% 242 ML IV SCH (11:18)
[2021-04-18] MEDS: fentaNYL Drip 2500mCg/250mlNS 250 ML IV SCH (11:19)
[2021-04-18] MEDS ORDERED: CLINIMIX PER PHARMACY 0 ML IV SCH (11:30)
[2021-04-18] MEDS ORDERED: TPN PER PHARMACY 0 ML IV SCH (11:30)
[2021-04-18] MEDS ORDERED: AMINO ACID INFUSION IN D10W 1,000 ML IV NR (12:00)
[2021-04-18 12:24] LABS: Magnesium 2.1 mg/dL (1.6-2.6)
[2021-04-18 12:29] LABS: Pre Albumin 3.2 mg/dL (20.0-40.0)
[2021-04-18] MEDS: ALBUMIN 25% 100 ML IV SCH ×2 (13:31→18:30)
[2021-04-18] MEDS: SODIUM BICARBONATE 50ML VIAL 50 ML in SOD CHL 0.45% 1,000 ML IV SCH (13:44)
[2021-04-18] MEDS: DOPamine 1600MCG/ML D5W 250 ML IV SCH (14:16)
[2021-04-18] MEDS ORDERED: DAPTOmycin 800 MG in SODIUM CHL 0.9% 50 ML IV ONE (14:30)
[2021-04-18] MEDS ORDERED: TPN PER PHARMACY IV NR ×5 (20:00)
[2021-04-19] VITALS (31 sets, daily range): BP systolic 90–152; BP diastolic 46–83
[2021-04-19] MEDS ORDERED: DEXTROSE (50%) 50ML SYRG IV SCH
[2021-04-19] MEDS: ALBUMIN 25% 100 ML IV SCH (01:49)
[2021-04-19 05:14] LABS: Lactic Acid w/Reflex 5.2 mmol/L (0.4-2.0)
[2021-04-19 05:25] LABS: Albumin 2.2 g/dL (3.4-5.0); Calcium 7.7 mg/dL (8.5-10.1); Magnesium 3.2 mg/dL (1.6-2.6); Potassium 4.2 mmol/L (3.5-5.1)
[2021-04-19 05:30] LABS: BUN/Creatinine Ratio 35.1; Bilirubin, Total 5.4 mg/dL (0.2-1.0); Phosphorus 2.7 mg/dL (2.5-4.90); Total Protein 4.4 g/dL (6.4-8.2)
[2021-04-19] MEDS: SODIUM BICARBONATE 50ML VIAL 50 ML in SOD CHL 0.45% 1,000 ML IV SCH ×3 (06:00→16:27)
[2021-04-19] MEDS: ACCU-CHEK COMFORT CURVE STRIP VI SCH ×4 (06:00→18:00)
[2021-04-19] MEDS: InsuLIN REG 1unit/0.01ml Soln (100units/ml) SC SCH ×4 (06:00→18:00)
[2021-04-19] MEDS: fentaNYL Drip 2500mCg/250mlNS 250 ML IV SCH (06:00)
[2021-04-19] MEDS: MIDAZOLAM DRIP 50 mg/50mL 50 ML IV SCH (06:05)
[2021-04-19] MEDS: DOPamine 1600MCG/ML D5W 250 ML IV SCH (08:40)
[2021-04-19 09:09] LABS: INR 1.46 (0.9-1.15)
[2021-04-19] MEDS: PANTOPRAZOLE 40 MG/10 ML VIAL INJ IV SCH ×2 (09:20→22:00)
[2021-04-19 10:52] LABS: Eosinophils # (auto) 0.7 10 ^3/uL (0-0.8); Eosinophils % (auto) 4.8 % (0.0-7.0); Lymphocytes # (auto) 1.6 10 ^3/uL (0.4-5.4)
[2021-04-19 10:54] LABS: Basophils # (auto) 0.2 10 ^3/uL (0-0.2); Basophils % (auto) 1.3 % (0.0-2.0); Hemoglobin 7.7 g/dL (12.2-16.2); Lymphocytes % (auto) 10.8 % (10.0-50.0); Mean Corpuscular Hemoglobin 27.1 pg (28.0-32.0); Mean Corpuscular Volume 84.8 fL (80.0-100.0); Monocytes # (auto) 0.2 10 ^3/uL (0-1.3); Monocytes % (auto) 1.5 % (0.0-12.0); Neutrophils # (auto) 12.1 10 ^3/uL (1.6-8.6); Neutrophils % (auto) 81.6 % (37.0-80.0); Nucleated Red Blood Cells % 0.7 %; Red Blood Cells 2.83 10^6/uL (4.0-5.20); White Blood Cell 14.8 10^3/uL (4.4-10.8)
[2021-04-19] MEDS: PHENYLEPHRINE INJ 80 MG in SODIUM CHL 0.9% 242 ML IV SCH (11:00)
[2021-04-19 11:01] LABS: Red Cell Distribution Width 24.5 % (11.8-14.3)
[2021-04-19] MEDS ORDERED: FUROSEMIDE 40 MG/4 ML VIAL IV ONE (13:30)
[2021-04-19] MEDS: TPN PER PHARMACY IV NR ×6 (19:39)
[2021-04-20] VITALS (30 sets, daily range): BP systolic 84–122; BP diastolic 36–72
[2021-04-20] MEDS: PHENYLEPHRINE INJ 80 MG in SODIUM CHL 0.9% 242 ML IV SCH ×2 (04:00→22:00)
[2021-04-20] MEDS: SODIUM BICARBONATE 50ML VIAL 50 ML in SOD CHL 0.45% 1,000 ML IV SCH (04:44)
[2021-04-20] MEDS: MIDAZOLAM DRIP 50 mg/50mL 50 ML IV SCH (04:44)
[2021-04-20 04:59] LABS: Albumin 1.7 g/dL (3.4-5.0); Calcium 7.5 mg/dL (8.5-10.1); Magnesium 2.7 mg/dL (1.6-2.6); Potassium 3.5 mmol/L (3.5-5.1)
[2021-04-20 05:02] LABS: BUN/Creatinine Ratio 35.8; Bilirubin, Total 6.1 mg/dL (0.2-1.0); Phosphorus 2.7 mg/dL (2.5-4.90); Total Protein 4.2 g/dL (6.4-8.2)
[2021-04-20] MEDS: InsuLIN REG 1unit/0.01ml Soln (100units/ml) SC SCH ×4 (06:00→18:00)
[2021-04-20] MEDS: ACCU-CHEK COMFORT CURVE STRIP VI SCH ×4 (06:00→18:00)
[2021-04-20] MEDS: DOPamine 1600MCG/ML D5W 250 ML IV SCH (07:30)
[2021-04-20] MEDS: DAPTOmycin 500 MG in SODIUM CHL 0.9% 50 ML IV SCH (09:55)
[2021-04-20] MEDS: PANTOPRAZOLE 40 MG/10 ML VIAL INJ IV SCH ×2 (10:00→22:00)
[2021-04-20] MEDS ORDERED: BUMETANIDE 2.5mg/10ml (0.25 mg/ml) INJ IV ONE (10:30)
[2021-04-20 11:56] LABS: Hemoglobin 7.1 g/dL (12.2-16.2)
[2021-04-20 12:09] LABS: INR 1.43 (0.9-1.15)
[2021-04-20 12:35] LABS: Mean Corpuscular Hemoglobin 27.3 pg (28.0-32.0); Mean Corpuscular Hgb Conc. 32.4 g/dL (32.0-36.0); Mean Corpuscular Volume 84.2 fL (80.0-100.0); Red Blood Cells 2.61 10^6/uL (4.0-5.20); White Blood Cell 17.8 10^3/uL (4.4-10.8)
[2021-04-20 12:37] LABS: Basophils % (manual) 0 (0.0-2.0); Blast Cells 0; Metamyelocytes % 0; Promyelocytes % 0; Reactive Lymphocytes 0
[2021-04-20 13:17] LABS: Band Neutrophils % (manual) 13; Eosinophils % (manual) 3 (0-7); Lymphocytes % (manual) 13 (10.0-50.0); Monocytes % (manual) 3 (0-12); Myelocytes % 2
[2021-04-20 14:25] LABS: Lactic Acid w/Reflex 4.9 mmol/L (0.4-2.0)
[2021-04-20] MEDS: VASOPRESSIN 50 UNITS in D5W 5% 247.5 ML IV SCH (16:45)
[2021-04-20] MEDS: fentaNYL Drip 2500mCg/250mlNS 250 ML IV SCH (19:00)
[2021-04-20] MEDS: TPN PER PHARMACY IV NR ×6 (19:50)
[2021-04-20] MEDS ORDERED: TPN PER PHARMACY IV NR ×6 (20:00)
[2021-04-21] VITALS (30 sets, daily range): BP systolic 100–132; BP diastolic 51–78
[2021-04-21] MEDS: FUROSEMIDE INJECTION 100 MG in SODIUM CHL 0.9% 100 ML IV SCH ×4 (01:00→18:45)
[2021-04-21 03:56] LABS: Calcium 7.6 mg/dL (8.5-10.1); Chloride 108 mmol/L (98-107); Potassium 3.8 mmol/L (3.5-5.1); Sodium 136 mmol/L (136-145)
[2021-04-21 04:02] LABS: Alanine Aminotransferase 16 U/L (13-56); Albumin 1.4 g/dL (3.4-5.0); Alkaline Phosphatase 543 U/L (45-117); Aspartate Aminotransferase 103 U/L (15-37); BUN/Creatinine Ratio 33.6; Bilirubin, Total 7.4 mg/dL (0.2-1.0); Carbon Dioxide 14 mmol/L (21-32); GFR African American 17 mL/min; GFR Non-African American 14 mL/min; Glucose 200 mg/dL (74-106); Phosphorus 3.4 mg/dL (2.5-4.90); Total Protein 4.2 g/dL (6.4-8.2)
[2021-04-21 04:06] LABS: Anion Gap 14 (5-15)
[2021-04-21 04:07] LABS: Blood Urea Nitrogen 112 mg/dL (7-18)
[2021-04-21] MEDS: InsuLIN REG 1unit/0.01ml Soln (100units/ml) SC SCH ×4 (06:00→18:00)
[2021-04-21] MEDS: ACCU-CHEK COMFORT CURVE STRIP VI SCH ×4 (06:18→18:00)
[2021-04-21] MEDS: MIDAZOLAM DRIP 50 mg/50mL 50 ML IV SCH (09:00)
[2021-04-21] MEDS: PANTOPRAZOLE 40 MG/10 ML VIAL INJ IV SCH ×2 (09:30→22:19)
[2021-04-21] MEDS ORDERED: metOLazone 5 MG TAB PO ONE ×2 (10:15)
[2021-04-21 11:00] LABS: Basophils # (auto) 0.1 10 ^3/uL (0-0.2)
[2021-04-21 11:02] LABS: Eosinophils # (auto) 0.2 10 ^3/uL (0-0.8); Eosinophils % (auto) 1.7 % (0.0-7.0); Hematocrit 20.1 % (36.0-46.0); Lymphocytes # (auto) 2.1 10 ^3/uL (0.4-5.4); Lymphocytes % (auto) 15.9 % (10.0-50.0); Mean Corpuscular Hemoglobin 27.9 pg (28.0-32.0); Mean Corpuscular Volume 87.2 fL (80.0-100.0); Monocytes # (auto) 0.2 10 ^3/uL (0-1.3); Monocytes % (auto) 1.7 % (0.0-12.0); Neutrophils # (auto) 10.4 10 ^3/uL (1.6-8.6); Neutrophils % (auto) 79.7 % (37.0-80.0); Nucleated Red Blood Cells % 4.1 %; Red Blood Cells 2.31 10^6/uL (4.0-5.20)
[2021-04-21 11:48] LABS: Hemoglobin 6.4 g/dL (12.2-16.2)
[2021-04-21 11:53] LABS: Red Cell Distribution Width 25.5 % (11.8-14.3)
[2021-04-21] MEDS: VASOPRESSIN 50 UNITS in D5W 5% 247.5 ML IV SCH (12:30)
[2021-04-21 15:38] LABS: BUN/Creatinine Ratio 34.6; Calcium 7.3 mg/dL (8.5-10.1); Potassium 3.4 mmol/L (3.5-5.1)
[2021-04-21] MEDS: POTASSIUM CHL 10MEQ/50ML 50 ML IV SCH ×3 (19:00→21:00)
[2021-04-21] MEDS: fentaNYL Drip 2500mCg/250mlNS 250 ML IV SCH (19:00)
[2021-04-21] MEDS ORDERED: TPN PER PHARMACY IV NR ×7 (20:00)
[2021-04-22] VITALS (15 sets, daily range): BP systolic 107–137; BP diastolic 57–72
[2021-04-22] MEDS: InsuLIN REG 1unit/0.01ml Soln (100units/ml) SC SCH ×3 (00:06→18:00)
[2021-04-22] MEDS: ACCU-CHEK COMFORT CURVE STRIP VI SCH ×3 (00:19→18:05)
[2021-04-22] MEDS: VASOPRESSIN 50 UNITS in D5W 5% 247.5 ML IV SCH (05:20)
[2021-04-22] MEDS ORDERED: SODIUM BICARBONATE 8.4 % INJ 50ML VIAL IV ONE (08:45)
[2021-04-22] MEDS: MIDAZOLAM DRIP 50 mg/50mL 50 ML IV SCH (09:00)
[2021-04-22 09:51] LABS: Monocytes # (auto) 0.3 10 ^3/uL (0-1.3)
[2021-04-22 09:53] LABS: Basophils # (auto) 0 10 ^3/uL (0-0.2); Basophils % (auto) 0.3 % (0.0-2.0); Eosinophils # (auto) 0.2 10 ^3/uL (0-0.8); Eosinophils % (auto) 1.6 % (0.0-7.0); Hematocrit 25.6 % (36.0-46.0); Hemoglobin 8.2 g/dL (12.2-16.2); Lymphocytes # (auto) 1.6 10 ^3/uL (0.4-5.4); Lymphocytes % (auto) 10.6 % (10.0-50.0); Mean Corpuscular Hemoglobin 27.6 pg (28.0-32.0); Mean Corpuscular Volume 86.3 fL (80.0-100.0); Monocytes % (auto) 1.7 % (0.0-12.0); Neutrophils # (auto) 12.6 10 ^3/uL (1.6-8.6); Neutrophils % (auto) 85.8 % (37.0-80.0); Nucleated Red Blood Cells % 4.3 %; Red Blood Cells 2.97 10^6/uL (4.0-5.20); Red Cell Distribution Width 23.8 % (11.8-14.3); White Blood Cell 14.7 10^3/uL (4.4-10.8)
[2021-04-22 10:07] LABS: Albumin 1.4 g/dL (3.4-5.0); Calcium 7.8 mg/dL (8.5-10.1); Potassium 3.9 mmol/L (3.5-5.1)
[2021-04-22 10:12] LABS: Bilirubin, Total 9.9 mg/dL (0.2-1.0); Phosphorus 3.6 mg/dL (2.5-4.90); Total Protein 4.5 g/dL (6.4-8.2)
[2021-04-22] MEDS: FUROSEMIDE INJECTION 100 MG in SODIUM CHL 0.9% 100 ML IV SCH ×4 (10:18→19:30)
[2021-04-22] MEDS: ALBUMIN 25% 50 ML IV SCH ×3 (10:19→23:45)
[2021-04-22] MEDS: PANTOPRAZOLE 40 MG/10 ML VIAL INJ IV SCH ×2 (10:20→22:00)
[2021-04-22] MEDS: DAPTOmycin 500 MG in SODIUM CHL 0.9% 50 ML IV SCH (10:27)
[2021-04-22 10:45] LABS: BUN/Creatinine Ratio 34.2
[2021-04-22] MEDS: SODIUM BICARBONATE 50ML VIAL 150 ML in D5W 5% 1,000 ML IV SCH ×2 (14:04→20:15)
[2021-04-22] MEDS: PHENYLEPHRINE INJ 80 MG in SODIUM CHL 0.9% 242 ML IV SCH (15:05)
[2021-04-22] MEDS ORDERED: DEXTROSE (50%) 50ML SYRG IV SCH (18:00)
[2021-04-22] MEDS: fentaNYL Drip 2500mCg/250mlNS 250 ML IV SCH (19:00)
[2021-04-22] MEDS ORDERED: AMINO ACID INFUSION IN D10W 1,000 ML IV NR (20:00)
[2021-04-23] VITALS (13 sets, daily range): BP systolic 104–134; BP diastolic 58–75
[2021-04-23] MEDS: FUROSEMIDE INJECTION 100 MG in SODIUM CHL 0.9% 100 ML IV SCH ×5 (00:45→21:31)
[2021-04-23 03:51] LABS: Albumin 1.6 g/dL (3.4-5.0); Basophils # (auto) 0.1 10 ^3/uL (0-0.2); Calcium 7.7 mg/dL (8.5-10.1); Eosinophils # (auto) 0.4 10 ^3/uL (0-0.8); Hemoglobin 7.6 g/dL (12.2-16.2); Lymphocytes # (auto) 1.1 10 ^3/uL (0.4-5.4); Monocytes # (auto) 0.1 10 ^3/uL (0-1.3); Monocytes % (auto) 0.8 % (0.0-12.0); Potassium 3.8 mmol/L (3.5-5.1); White Blood Cell 14.2 10^3/uL (4.4-10.8)
[2021-04-23 03:52] LABS: Basophils % (auto) 0.9 % (0.0-2.0); Eosinophils % (auto) 2.5 % (0.0-7.0); Hematocrit 23.7 % (36.0-46.0); Lymphocytes % (auto) 7.5 % (10.0-50.0); Mean Corpuscular Hemoglobin 27.3 pg (28.0-32.0); Mean Corpuscular Volume 85.1 fL (80.0-100.0); Neutrophils # (auto) 12.6 10 ^3/uL (1.6-8.6); Neutrophils % (auto) 88.3 % (37.0-80.0); Nucleated Red Blood Cells % 2.1 %; Red Blood Cells 2.79 10^6/uL (4.0-5.20)
[2021-04-23 03:53] LABS: Red Cell Distribution Width 23.9 % (11.8-14.3)
[2021-04-23 03:58] LABS: Bilirubin, Total 11.5 mg/dL (0.2-1.0); Phosphorus 3.7 mg/dL (2.5-4.90); Pre Albumin 3.8 mg/dL (20.0-40.0); Total Protein 4.4 g/dL (6.4-8.2)
[2021-04-23] MEDS: ACCU-CHEK COMFORT CURVE STRIP VI SCH ×4 (06:00→18:00)
[2021-04-23] MEDS: InsuLIN REG 1unit/0.01ml Soln (100units/ml) SC SCH ×4 (06:00→18:00)
[2021-04-23] MEDS: PHENYLEPHRINE INJ 80 MG in SODIUM CHL 0.9% 242 ML IV SCH (07:58)
[2021-04-23] MEDS: MIDAZOLAM DRIP 50 mg/50mL 50 ML IV SCH (09:00)
[2021-04-23] MEDS: PANTOPRAZOLE 40 MG/10 ML VIAL INJ IV SCH ×2 (10:00→23:11)
[2021-04-23] MEDS: VASOPRESSIN 50 UNITS in D5W 5% 247.5 ML IV SCH (12:30)
[2021-04-23] MEDS: SODIUM BICARBONATE 50ML VIAL 150 ML in D5W 5% 1,000 ML IV SCH ×2 (13:00→18:30)
[2021-04-23] MEDS ORDERED: MEROPENEM 500MG IVPB 50 ML IV ONE (16:15)
[2021-04-23] MEDS ORDERED: phytonadione 10 MG in SODIUM CHL 0.9% 50 ML IV ONE (16:15)
[2021-04-23] MEDS ORDERED: PIPERACILLIN-TAZOB 2.25GM 50 ML IV SCH (18:00)
[2021-04-23] MEDS: fentaNYL Drip 2500mCg/250mlNS 250 ML IV SCH (19:00)
[2021-04-23] MEDS ORDERED: TPN PER PHARMACY IV NR ×5 (20:00)
[2021-04-24] VITALS (36 sets, daily range): BP systolic 103–145; BP diastolic 56–106
[2021-04-24] MEDS: ACCU-CHEK COMFORT CURVE STRIP VI SCH ×4 (00:20→18:00)
[2021-04-24] MEDS: VASOPRESSIN 50 UNITS in D5W 5% 247.5 ML IV SCH (00:21)
[2021-04-24] MEDS: InsuLIN REG 1unit/0.01ml Soln (100units/ml) SC SCH ×4 (00:26→18:00)
[2021-04-24] MEDS: PHENYLEPHRINE INJ 80 MG in SODIUM CHL 0.9% 242 ML IV SCH ×2 (01:49→15:53)
[2021-04-24] MEDS: FUROSEMIDE INJECTION 100 MG in SODIUM CHL 0.9% 100 ML IV SCH ×5 (03:31→17:50)
[2021-04-24 04:00] LABS: Hematocrit 21.2 % (36.0-46.0); INR 1.66 (0.9-1.15); Mean Corpuscular Hgb Conc. 32.6 g/dL (32.0-36.0); Mean Corpuscular Volume 85.7 fL (80.0-100.0); Red Blood Cells 2.47 10^6/uL (4.0-5.20); White Blood Cell 10.3 10^3/uL (4.4-10.8)
[2021-04-24 04:08] LABS: Albumin 1.3 g/dL (3.4-5.0); BUN/Creatinine Ratio 33.1; Calcium 7.5 mg/dL (8.5-10.1); Potassium 3.5 mmol/L (3.5-5.1)
[2021-04-24 04:10] LABS: Phosphorus 3.5 mg/dL (2.5-4.90)
[2021-04-24 05:17] LABS: Hemoglobin 6.9 g/dL (12.2-16.2); Red Cell Distribution Width 24.2 % (11.8-14.3)
[2021-04-24 05:18] LABS: Basophils % (manual) 0 (0.0-2.0); Blast Cells 0; Metamyelocytes % 0; Monocytes % (manual) 0 (0-12); Promyelocytes % 0; Reactive Lymphocytes 0
[2021-04-24] MEDS: MEROPENEM 500MG IVPB 50 ML IV SCH ×2 (05:20→21:52)
[2021-04-24 07:05] LABS: Band Neutrophils % (manual) 47; Eosinophils % (manual) 2 (0-7); Lymphocytes % (manual) 6 (10.0-50.0); Myelocytes % 1
[2021-04-24] MEDS: MIDAZOLAM DRIP 50 mg/50mL 50 ML IV SCH (09:00)
[2021-04-24] MEDS: PANTOPRAZOLE 40 MG/10 ML VIAL INJ IV SCH ×2 (10:01→23:03)
[2021-04-24] MEDS: DAPTOmycin 500 MG in SODIUM CHL 0.9% 50 ML IV SCH (10:22)
[2021-04-24 10:41] LABS: Hemoglobin 6.9 g/dL (12.2-16.2)
[2021-04-24] MEDS: SODIUM BICARBONATE 50ML VIAL 150 ML in D5W 5% 1,000 ML IV SCH ×2 (12:00→23:30)
[2021-04-24] MEDS ORDERED: TPN PER PHARMACY IV NR ×7 (20:00)
[2021-04-24] MEDS: fentaNYL Drip 2500mCg/250mlNS 250 ML IV SCH (21:57)
[2021-04-25] VITALS (33 sets, daily range): BP systolic 92–144; BP diastolic 50–82
[2021-04-25] MEDS: ACCU-CHEK COMFORT CURVE STRIP VI SCH ×4 (00:22→18:07)
[2021-04-25] MEDS: InsuLIN REG 1unit/0.01ml Soln (100units/ml) SC SCH ×4 (00:23→18:00)
[2021-04-25] MEDS: FUROSEMIDE INJECTION 100 MG in SODIUM CHL 0.9% 100 ML IV SCH ×5 (00:24→21:09)
[2021-04-25] MEDS: VASOPRESSIN 50 UNITS in D5W 5% 247.5 ML IV SCH ×2 (04:24→21:10)
[2021-04-25] MEDS: PHENYLEPHRINE INJ 80 MG in SODIUM CHL 0.9% 242 ML IV SCH (04:25)
[2021-04-25 05:35] LABS: Basophils # (auto) 0.1 10 ^3/uL (0-0.2); Basophils % (auto) 0.7 % (0.0-2.0); Eosinophils # (auto) 0.4 10 ^3/uL (0-0.8); Lymphocytes # (auto) 0.8 10 ^3/uL (0.4-5.4); Mean Corpuscular Volume 84.1 fL (80.0-100.0); Monocytes # (auto) 0.1 10 ^3/uL (0-1.3); Monocytes % (auto) 0.8 % (0.0-12.0)
[2021-04-25 05:36] LABS: Eosinophils % (auto) 3.9 % (0.0-7.0); Hematocrit 22.3 % (36.0-46.0); Hemoglobin 7.5 g/dL (12.2-16.2); Lymphocytes % (auto) 7.5 % (10.0-50.0); Mean Corpuscular Hemoglobin 28.4 pg (28.0-32.0); Mean Corpuscular Hgb Conc. 33.7 g/dL (32.0-36.0); Neutrophils # (auto) 8.9 10 ^3/uL (1.6-8.6); Neutrophils % (auto) 87.1 % (37.0-80.0); Nucleated Red Blood Cells % 1.1 %; Red Blood Cells 2.65 10^6/uL (4.0-5.20); White Blood Cell 10.2 10^3/uL (4.4-10.8)
[2021-04-25 05:52] LABS: INR 1.43 (0.9-1.15)
[2021-04-25 05:53] LABS: Albumin 1.4 g/dL (3.4-5.0); BUN/Creatinine Ratio 34.6; Potassium 3.3 mmol/L (3.5-5.1)
[2021-04-25 05:55] LABS: Bilirubin, Total 12.6 mg/dL (0.2-1.0); Lactic Acid w/Reflex 9.2 mmol/L (0.4-2.0); Phosphorus 3.6 mg/dL (2.5-4.90)
[2021-04-25] MEDS ORDERED: SODIUM CHL 0.9% 1000 ML BAG XX ONE (06:30)
[2021-04-25] MEDS ORDERED: POTASSIUM CHL 20MEQ/100ML 100 ML IV ONE (08:00)
[2021-04-25] MEDS: MIDAZOLAM DRIP 50 mg/50mL 50 ML IV SCH (09:00)
[2021-04-25] MEDS: POTASSIUM CHL 10MEQ/50ML 50 ML IV SCH ×2 (09:34→10:30)
[2021-04-25] MEDS: PANTOPRAZOLE 40 MG/10 ML VIAL INJ IV SCH ×3 (09:39→22:29)
[2021-04-25] MEDS ORDERED: MEROPENEM 500MG IVPB 50 ML IV SCH (10:00)
[2021-04-25] MEDS: SODIUM BICARBONATE 50ML VIAL 150 ML in D5W 5% 1,000 ML IV SCH (11:00)
[2021-04-25] MEDS ORDERED: MAGNESIUM SULFATE 1GM/100ML 100 ML IV ONE (11:00)
[2021-04-25] MEDS ORDERED: ALBUMIN 25% 100 ML IV PRN (15:30)
[2021-04-25] MEDS: NOREPINEPHRINE BITARTRATE 32 MG in SODIUM CHL 0.9% 218 ML IV SCH (16:00)
[2021-04-25] MEDS: fentaNYL Drip 2500mCg/250mlNS 250 ML IV SCH ×2 (19:00→21:56)
[2021-04-25] MEDS ORDERED: TPN PER PHARMACY IV NR ×8 (20:00)
[2021-04-26] VITALS (47 sets, daily range): BP systolic 89–144; BP diastolic 53–80
[2021-04-26] MEDS: FUROSEMIDE INJECTION 100 MG in SODIUM CHL 0.9% 100 ML IV SCH (01:14)
[2021-04-26] MEDS: InsuLIN REG 1unit/0.01ml Soln (100units/ml) SC SCH ×5 (01:16→23:44)
[2021-04-26] MEDS: PHENYLEPHRINE INJ 80 MG in SODIUM CHL 0.9% 242 ML IV SCH (03:35)
[2021-04-26 03:48] LABS: Hemoglobin 7.2 g/dL (12.2-16.2); Lymphocytes # (auto) 0.8 10 ^3/uL (0.4-5.4); Lymphocytes % (auto) 8.7 % (10.0-50.0); Monocytes # (auto) 0.1 10 ^3/uL (0-1.3)
[2021-04-26 03:53] LABS: Basophils # (auto) 0.1 10 ^3/uL (0-0.2); Basophils % (auto) 0.8 % (0.0-2.0); Eosinophils # (auto) 0.1 10 ^3/uL (0-0.8); Eosinophils % (auto) 1.3 % (0.0-7.0); Hematocrit 21.8 % (36.0-46.0); Mean Corpuscular Hgb Conc. 33.2 g/dL (32.0-36.0); Mean Corpuscular Volume 87.3 fL (80.0-100.0); Monocytes % (auto) 0.9 % (0.0-12.0); Neutrophils # (auto) 8.2 10 ^3/uL (1.6-8.6); Neutrophils % (auto) 88.3 % (37.0-80.0); Nucleated Red Blood Cells % 1.2 %; Red Blood Cells 2.49 10^6/uL (4.0-5.20); White Blood Cell 9.3 10^3/uL (4.4-10.8)
[2021-04-26 04:13] LABS: Albumin 1.6 g/dL (3.4-5.0); Calcium 6.7 mg/dL (8.5-10.1); Potassium 3.7 mmol/L (3.5-5.1)
[2021-04-26 04:15] LABS: BUN/Creatinine Ratio 29.3
[2021-04-26 04:17] LABS: Bilirubin, Total 13.9 mg/dL (0.2-1.0); Phosphorus 2.8 mg/dL (2.5-4.90); Total Protein 4.1 g/dL (6.4-8.2)
[2021-04-26 04:46] LABS: INR 1.5 (0.9-1.15)
[2021-04-26] MEDS: ACCU-CHEK COMFORT CURVE STRIP VI SCH ×5 (06:00→23:45)
[2021-04-26 07:08] LABS: Red Cell Distribution Width 21.9 % (11.8-14.3)
[2021-04-26] MEDS ORDERED: SODIUM CHL 0.9% 1000 ML BAG XX ONE (08:00)
[2021-04-26] MEDS: MIDAZOLAM DRIP 50 mg/50mL 50 ML IV SCH (09:00)
[2021-04-26] MEDS: DAPTOmycin 500 MG in SODIUM CHL 0.9% 50 ML IV SCH (15:10)
[2021-04-26] MEDS: NOREPINEPHRINE BITARTRATE 32 MG in SODIUM CHL 0.9% 218 ML IV SCH (16:00)
[2021-04-26 19:39] LABS: Red Blood Cells 1.98 10^6/uL (4.0-5.20); White Blood Cell 8.9 10^3/uL (4.4-10.8)
[2021-04-26 19:40] LABS: Mean Corpuscular Hemoglobin 28.9 pg (28.0-32.0); Mean Corpuscular Hgb Conc. 33.6 g/dL (32.0-36.0)
[2021-04-26 19:57] LABS: Red Cell Distribution Width 21.9 % (11.8-14.3)
[2021-04-26 19:59] LABS: Hemoglobin 5.7 g/dL (12.2-16.2)
[2021-04-26] MEDS ORDERED: TPN PER PHARMACY IV NR ×8 (20:00)
[2021-04-26 20:01] LABS: Basophils % (manual) 0 (0.0-2.0); Blast Cells 0; Eosinophils % (manual) 0 (0-7); Metamyelocytes % 0; Myelocytes % 0; Promyelocytes % 0; Reactive Lymphocytes 0
[2021-04-26 20:42] LABS: Band Neutrophils % (manual) 40; Lymphocytes % (manual) 9 (10.0-50.0); Monocytes % (manual) 1 (0-12)
[2021-04-26] MEDS ORDERED: EPOETIN ALFA-EPBX 10,000 UNIT/1ML VIAL SC ONE (21:00)
[2021-04-26] MEDS: PANTOPRAZOLE 40 MG/10 ML VIAL INJ IV SCH (22:23)
[2021-04-27] VITALS (73 sets, daily range): BP systolic 79–120; BP diastolic 42–67
[2021-04-27] MEDS: VASOPRESSIN 50 UNITS in D5W 5% 247.5 ML IV SCH ×2 (00:57→22:53)
[2021-04-27] MEDS: NOREPINEPHRINE BITARTRATE 32 MG in SODIUM CHL 0.9% 218 ML IV SCH (01:12)
[2021-04-27] MEDS: PHENYLEPHRINE INJ 80 MG in SODIUM CHL 0.9% 242 ML IV SCH ×2 (01:13→20:04)
[2021-04-27] MEDS: fentaNYL Drip 2500mCg/250mlNS 250 ML IV SCH (01:16)
[2021-04-27 03:29] LABS: Basophils # (auto) 0.1 10 ^3/uL (0-0.2); Basophils % (auto) 0.6 % (0.0-2.0); Eosinophils # (auto) 0.1 10 ^3/uL (0-0.8); Monocytes # (auto) 0.1 10 ^3/uL (0-1.3); Red Blood Cells 2.34 10^6/uL (4.0-5.20)
[2021-04-27 03:30] LABS: Eosinophils % (auto) 1.1 % (0.0-7.0); Hematocrit 20.3 % (36.0-46.0); Lymphocytes % (auto) 9.9 % (10.0-50.0); Mean Corpuscular Hemoglobin 28.5 pg (28.0-32.0); Mean Corpuscular Hgb Conc. 32.8 g/dL (32.0-36.0); Mean Corpuscular Volume 86.9 fL (80.0-100.0); Monocytes % (auto) 1.1 % (0.0-12.0); Neutrophils # (auto) 9.1 10 ^3/uL (1.6-8.6); Neutrophils % (auto) 87.3 % (37.0-80.0); Nucleated Red Blood Cells % 1.8 %; White Blood Cell 10.5 10^3/uL (4.4-10.8)
[2021-04-27 03:40] LABS: Hemoglobin 6.7 g/dL (12.2-16.2); Red Cell Distribution Width 20.6 % (11.8-14.3)
[2021-04-27 03:42] LABS: Albumin 2.1 g/dL (3.4-5.0); BUN/Creatinine Ratio 26.4; Calcium 6.9 mg/dL (8.5-10.1); Potassium 3.9 mmol/L (3.5-5.1)
[2021-04-27 03:45] LABS: Bilirubin, Total 13.7 mg/dL (0.2-1.0); Phosphorus 3.4 mg/dL (2.5-4.90); Total Protein 4.2 g/dL (6.4-8.2)
[2021-04-27] MEDS: InsuLIN REG 1unit/0.01ml Soln (100units/ml) SC SCH ×4 (06:00→23:45)
[2021-04-27] MEDS: ACCU-CHEK COMFORT CURVE STRIP VI SCH ×4 (06:00→23:45)
[2021-04-27] MEDS: PANTOPRAZOLE 40 MG/10 ML VIAL INJ IV SCH ×2 (10:00→22:00)
[2021-04-27] MEDS ORDERED: SODIUM BICARBONATE 8.4 % INJ 50ML VIAL IV ONE ×2 (10:45)
[2021-04-27] MEDS: SODIUM BICARBONATE 50ML VIAL 50 ML in SOD CHL 0.45% 1,000 ML IV SCH ×2 (10:45→22:11)
[2021-04-27] MEDS ORDERED: phytonadione 10 MG in SODIUM CHL 0.9% 50 ML IV ONE (10:45)
[2021-04-27] MEDS ORDERED: phytonadione 1 ML ONE (10:59)
[2021-04-27 12:26] LABS: Basophils # (auto) 0.1 10 ^3/uL (0-0.2); Eosinophils # (auto) 0.1 10 ^3/uL (0-0.8); Eosinophils % (auto) 0.6 % (0.0-7.0); Hemoglobin 7.5 g/dL (12.2-16.2); Monocytes # (auto) 0.1 10 ^3/uL (0-1.3); Monocytes % (auto) 0.7 % (0.0-12.0); Nucleated Red Blood Cells % 2.9 %
[2021-04-27 12:29] LABS: Basophils % (auto) 0.6 % (0.0-2.0); Hematocrit 22.2 % (36.0-46.0); Lymphocytes # (auto) 0.8 10 ^3/uL (0.4-5.4); Lymphocytes % (auto) 7.1 % (10.0-50.0); Mean Corpuscular Hemoglobin 29.3 pg (28.0-32.0); Mean Corpuscular Hgb Conc. 33.7 g/dL (32.0-36.0); Neutrophils # (auto) 9.9 10 ^3/uL (1.6-8.6); Red Blood Cells 2.55 10^6/uL (4.0-5.20); Red Cell Distribution Width 18.4 % (11.8-14.3); White Blood Cell 10.8 10^3/uL (4.4-10.8)
[2021-04-27 12:49] LABS: INR 1.47 (0.9-1.15)
[2021-04-27 12:59] LABS: Albumin 1.9 g/dL (3.4-5.0); Calcium 6.9 mg/dL (8.5-10.1)
[2021-04-27 13:03] LABS: BUN/Creatinine Ratio 27.1; Bilirubin, Total 12.5 mg/dL (0.2-1.0); Total Protein 4.4 g/dL (6.4-8.2)
[2021-04-27] MEDS ORDERED: TPN PER PHARMACY IV NR ×7 (20:00)
[2021-04-28] VITALS (27 sets, daily range): BP systolic 79–118; BP diastolic 43–63
[2021-04-28] MEDS: PHENYLEPHRINE INJ 80 MG in SODIUM CHL 0.9% 242 ML IV SCH (01:55)
[2021-04-28] MEDS: fentaNYL Drip 2500mCg/250mlNS 250 ML IV SCH (01:55)
[2021-04-28 03:25] LABS: Hematocrit 23.6 % (36.0-46.0); Mean Corpuscular Volume 88.1 fL (80.0-100.0); Monocytes # (auto) 0.1 10 ^3/uL (0-1.3); Red Blood Cells 2.68 10^6/uL (4.0-5.20)
[2021-04-28 03:27] LABS: Basophils # (auto) 0.1 10 ^3/uL (0-0.2); Basophils % (auto) 0.6 % (0.0-2.0); Eosinophils # (auto) 0.1 10 ^3/uL (0-0.8); Eosinophils % (auto) 0.8 % (0.0-7.0); Hemoglobin 7.6 g/dL (12.2-16.2); Lymphocytes # (auto) 1.2 10 ^3/uL (0.4-5.4); Lymphocytes % (auto) 11.5 % (10.0-50.0); Mean Corpuscular Hemoglobin 28.4 pg (28.0-32.0); Mean Corpuscular Hgb Conc. 32.3 g/dL (32.0-36.0); Monocytes % (auto) 0.9 % (0.0-12.0); Neutrophils # (auto) 8.8 10 ^3/uL (1.6-8.6); Neutrophils % (auto) 86.2 % (37.0-80.0); Red Cell Distribution Width 18.7 % (11.8-14.3); White Blood Cell 10.3 10^3/uL (4.4-10.8)
[2021-04-28 03:41] LABS: Potassium 4.4 mmol/L (3.5-5.1)
[2021-04-28 03:45] LABS: Albumin 1.8 g/dL (3.4-5.0); BUN/Creatinine Ratio 29.3; Calcium 6.7 mg/dL (8.5-10.1); INR 1.44 (0.9-1.15); Lactic Acid w/Reflex 10.6 mmol/L (0.4-2.0); Phosphorus 4.4 mg/dL (2.5-4.90)
[2021-04-28 03:48] LABS: Pre Albumin 3.9 mg/dL (20.0-40.0)
[2021-04-28 03:49] LABS: Bilirubin, Total 13.6 mg/dL (0.2-1.0); Total Protein 4.2 g/dL (6.4-8.2)
[2021-04-28 04:05] LABS: Nucleated Red Blood Cells % 3.3 %
[2021-04-28] MEDS: ACCU-CHEK COMFORT CURVE STRIP VI SCH (05:49)
[2021-04-28] MEDS: InsuLIN REG 1unit/0.01ml Soln (100units/ml) SC SCH (05:49)
[2021-04-28] MEDS: PANTOPRAZOLE 40 MG/10 ML VIAL INJ IV SCH (07:32)
== END 2021-04-28 16:42 | DRG 870 ==
LOC: EDBD 22:03 → ER 22:10 → TELE 04-04 07:03 → TELE-WESTW 04-04 22:53 → TELE-CENTR 04-06 18:08 → CATH ICU 04-15 12:25
PROVIDERS: ADMIT Nurse Practitioner; ATTEND Internal Medicine
PROC: 30233N1 Transfusion of Nonautologous Red Blood Cells into Peripheral Vein, Percutaneous Approach (ICD-10-PCS; 2021-04-09)
PROC: 0F9230Z Drainage of Left Lobe Liver with Drainage Device, Percutaneous Approach (ICD-10-PCS; 2021-04-10)
PROC: 0FB23ZX Excision of Left Lobe Liver, Percutaneous Approach, Diagnostic (ICD-10-PCS; 2021-04-10)
PROC: 02H633Z Insertion of Infusion Device into Right Atrium, Percutaneous Approach (ICD-10-PCS; 2021-04-10)
PROC: B548ZZA Ultrasonography of Superior Vena Cava, Guidance (ICD-10-PCS; 2021-04-10)
PROC: 5A09357 Assistance with Respiratory Ventilation, Less than 24 Consecutive Hours, Continuous Positive Airway Pressure (ICD-10-PCS; 2021-04-11)
PROC: 5A09357 Assistance with Respiratory Ventilation, Less than 24 Consecutive Hours, Continuous Positive Airway Pressure (ICD-10-PCS; 2021-04-12)
PROC: 5A09357 Assistance with Respiratory Ventilation, Less than 24 Consecutive Hours, Continuous Positive Airway Pressure (ICD-10-PCS; 2021-04-14)
PROC: 5A1955Z Respiratory Ventilation, Greater than 96 Consecutive Hours (ICD-10-PCS; principal; 2021-04-15)
PROC: 5A12012 Performance of Cardiac Output, Single, Manual (ICD-10-PCS; 2021-04-15)
PROC: 0BH17EZ Insertion of Endotracheal Airway into Trachea, Via Natural or Artificial Opening (ICD-10-PCS; 2021-04-15)
PROC: 05HC33Z Insertion of Infusion Device into Left Basilic Vein, Percutaneous Approach (ICD-10-PCS; 2021-04-18)
PROC: B54NZZA Ultrasonography of Left Upper Extremity Veins, Guidance (ICD-10-PCS; 2021-04-18)
PROC: 30233K1 Transfusion of Nonautologous Frozen Plasma into Peripheral Vein, Percutaneous Approach (ICD-10-PCS; 2021-04-18)
PROC: 06HM33Z Insertion of Infusion Device into Right Femoral Vein, Percutaneous Approach (ICD-10-PCS; 2021-04-22)
PROC: 30233R1 Transfusion of Nonautologous Platelets into Peripheral Vein, Percutaneous Approach (ICD-10-PCS; 2021-04-24)
PROC: 02HV33Z Insertion of Infusion Device into Superior Vena Cava, Percutaneous Approach (ICD-10-PCS; 2021-04-25)
PROC: B548ZZA Ultrasonography of Superior Vena Cava, Guidance (ICD-10-PCS; 2021-04-25)
PROC: 5A1D70Z Performance of Urinary Filtration, Intermittent, Less than 6 Hours Per Day (ICD-10-PCS; 2021-04-25)
PROC: 5A1D70Z Performance of Urinary Filtration, Intermittent, Less than 6 Hours Per Day (ICD-10-PCS; 2021-04-26)
DX: A41.9 Sepsis, unspecified organism (principal); N17.0 Acute kidney failure with tubular necrosis; K75.0 Abscess of liver; K65.1 Peritoneal abscess; K63.1 Perforation of intestine (nontraumatic); E43 Unspecified severe protein-calorie malnutrition; R65.21 Severe sepsis with septic shock; G93.41 Metabolic encephalopathy; J96.01 Acute respiratory failure with hypoxia; I21.A1 Myocardial infarction type 2; K92.2 Gastrointestinal hemorrhage, unspecified; C78.7 Secondary malignant neoplasm of liver and intrahepatic bile duct; I50.32 Chronic diastolic (congestive) heart failure; Z68.43 Body mass index [BMI] 50.0-59.9, adult; C18.9 Malignant neoplasm of colon, unspecified; I48.20 Chronic atrial fibrillation, unspecified; D68.9 Coagulation defect, unspecified; C18.4 Malignant neoplasm of transverse colon; E66.01 Morbid (severe) obesity due to excess calories; D50.0 Iron deficiency anemia secondary to blood loss (chronic); I48.0 Paroxysmal atrial fibrillation; R65.20 Severe sepsis without septic shock; Z66 Do not resuscitate; I46.9 Cardiac arrest, cause unspecified; Z51.5 Encounter for palliative care; J44.9 Chronic obstructive pulmonary disease, unspecified; N18.30 Chronic kidney disease, stage 3 unspecified; G47.33 Obstructive sleep apnea (adult) (pediatric); E87.6 Hypokalemia; B95.2 Enterococcus as the cause of diseases classified elsewhere; D69.6 Thrombocytopenia, unspecified; N14.1 Nephropathy induced by other drugs, medicaments and biological substances; E11.22 Type 2 diabetes mellitus with diabetic chronic kidney disease; T36.8X5A Adverse effect of other systemic antibiotics, initial encounter; E11.42 Type 2 diabetes mellitus with diabetic polyneuropathy; T50.8X5A Adverse effect of diagnostic agents, initial encounter; K72.90 Hepatic failure, unspecified without coma; Z20.822 Contact with and (suspected) exposure to COVID-19; Z79.899 Other long term (current) drug therapy; Y92.89 Other specified places as the place of occurrence of the external cause; Z79.01 Long term (current) use of anticoagulants; Z85.038 Personal history of other malignant neoplasm of large intestine; Z86.73 Personal history of transient ischemic attack (TIA), and cerebral infarction without residual deficits; Z99.2 Dependence on renal dialysis; Z79.84 Long term (current) use of oral hypoglycemic drugs
CPT/HCPCS: 10005; 31500; 36415; 36569; 36600; 70450; 71045; 74150; 74176; 74177; 77012; 80048; 80053; 80202; 81001; 82040; 82378; 82565; 82805; 82962; 83036; 83605; 83735; 83880; 84100; 84478; 84484; 85007; 85014; 85018; 85025; 85027; 85610; 85730; 86850; 86900; 86901; 86920; 87040; 87070; 87077; 87086; 87186; 87205; 87426; 89051; 90935; 92950; 93005; 93306; 93970; 93971; 94002; 94003; 94660; 95819; 96361; 96365; 96368; C1729; C9113; G0378; J1642; J1815; J1885; J2185; J2248; J2250; J2405; J2543; J3430; J3480; J7042; J7060; J7131; P9047